=== PATIENT | female | born 1990 | race Caucasian/White ===

== ENCOUNTER → 2019-09-12 | Outpatient (CLI) | payer BC ==
--- NOTE | 2019-09-12 10:39 | Diagnostic Imaging Report ---
EXAMINATION: MRI of the cervical spine without contrast HISTORY: Neck and right shoulder pain, cervical radiculopathy, right upper extremity numbness and weakness. Since May 2018. COMPARISON: None available TECHNIQUE: Sagittal T1, T2, STIR; axial T2, gradient echo. FINDINGS: Curvature: Straightening of the cervical lordosis which may be related to muscle spasm or positional. Vertebrae: No evidence of neoplasm, infection, or fracture. Foramen magnum: No mass, Chiari malformation, or basilar invagination. Soft Tissues: Unremarkable. Spinal Cord: Questionable ill-defined confluent increase T2 signal intensity within the cervical spinal cord from C3-C4 through C7, only seen on sagittal plane without correlation on the axial plane, this may represent an artifact (not a real finding), if there is clinical concern for myelopathy or demyelinating process consider a follow-up MRI with contrast in 3-6 months or father laboratory analysis if clinically indicated. Degenerative changes: C1-C2: Unremarkable. C2-C3: Unremarkable. C3-C4: Mild symmetric disc bulge. No canal or foraminal stenosis. C4-C5: Mild symmetric disc pole which time uncovertebral processes mainly on the left, no associated significant canal or foraminal stenosis. C5-C6: Mild symmetric disc bulge, no spinal canal or foraminal stenoses. C6-C7: Minimal symmetric disc bulge, no spinal canal or foraminal stenoses. C7-T1: Unremarkable. IMPRESSION: 1. Minimal degenerative changes from C3-C4 to C6-7 without significant spinal canal or foraminal stenosis, particularly there is no evidence of nerve root compression. 2. Questionable increased signal within the cervical spinal cord, likely artifactual as detail above. Signed by: Dr. Deborah Erwin M.D. on 09/12/2019 10:36 AM
== END ==
LOC: MRI 07:44
PROVIDERS: ATTEND Family Medicine
DX: M54.12 Radiculopathy, cervical region (principal)
CPT/HCPCS: 72141; 81025